=== PATIENT | male | born 2000 | race Caucasian/White ===

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

== ENCOUNTER → 2020-06-24 11:46 | Outpatient (BNVA) | payer SELFPAY | PROVIDERS: Family Provider Nurse Practitioner; Visit Provider Nurse Practitioner Family | DX: S46.911A Strain of unspecified muscle, fascia and tendon at shoulder and upper arm level, right arm, initial encounter (principal); S39.012A Strain of muscle, fascia and tendon of lower back, initial encounter; J30.2 Other seasonal allergic rhinitis; X58.XXXA Exposure to other specified factors, initial encounter | CPT/HCPCS: 73030 ==

== ENCOUNTER 2024-11-05 20:01 | Emergency (ER) | payer BC, SELFPAY ==
[2024-11-05 20:17] VITALS: BP 142/75; PULSE 88; RESP 17; TEMP 37; O2SAT 97; BMI 30.1
--- OUTSIDE RECORDS SUMMARY | 2024-11-05 20:19 | XMS_ITS | Clinical Summary ---
Author Organization [facility] Address [address] [facility] Attn: Epic Prelude ADT ROBYN SOTO [id number] Care Team Providers Care Powder Hand Name Role Phone Unavailable Primary Care Provider Unavailabl e Allergies No known active allergies Medications bismuth subsalicylate (PEPTO-BISMOL) 262 mg Tablet, Chewable Take 262 mg by mouth every 1 hour as needed. 9 Active ibuprofen (MOTRIN) 800 mg tablet Take 800 mg by mouth every 6 hours as needed for Pain, Mild. 9 Active dicyclomine (BENTYL) 10 mg capsule Take 1 Capsule (10 mg) by mouth 4 times daily. 30 Capsule None 9 Active ondansetron (ZOFRAN ODT) 4 mg Tablet, Rapid Dissolve Take 1 Tablet (4 mg) by mouth every 8 hours as needed for Nausea/Emesis Dissolve tablet on top of tongue, then swallow with saliva.. 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 Gender Identity Not on file Sexual Orientation Not on file Last Filed Vital Signs Vital Sign Reading Time Taken Comments Blood Pressure 135/71 09/12/2018 6:02 PM CDT Pulse 92 05/17/2018 5:24 PM CDT Temperature 36.8 C (98.3 F) 09/12/2018 6:02 PM CDT Respiratory Rate 16 09/12/2018 6:02 PM CDT Oxygen Saturation - - Inhaled Oxygen Concentration - - Weight 73.6 kg (162 lb 3.2 oz) 09/12/2018 4:13 P M CDT Height 177.8 cm (5' 10 ) 09/12/2018 4:13 PM CDT Body Mass Index 23.27 09/12/2018 4:13 PM CDT Plan of Treatment Health Maintenance Due Date Last Done Comments HPV VACCINES (1 - Male 3-dose series) 08/03/2015 DTAP/TDAP/TD VACCINES (1 - Tdap) 08/03/2019 HEPATITIS B VACCINES (1 of 3 - 19+ 3-dose series) 07/14 INFLUENZA VACCINE (#1) 2024 CHLAMYDIA SCREENING (ANNUAL) 11-24 YEARS Discontinued 09/12/2018 Procedures Procedure Name Priority Date/Time Associated Diagnosis Comments GC/CHLAMYDIA, URINE Routine 09/12/2018 5 :25 PM CDT from Last 3 Months or Most Recently Relevant to Health Maintenance Results * GC/CHLAMYDIA, URINE (09/12/2018 5:25 PM CDT) CHLAMYDIA DNA AMPLIFICATION NOT DETECTED Not Detected 09/13/2018 9:45 PM CDT [facility] GC DNA AMPLIFICATION NOT DETECTED Not Detected 09/13/2018 9:45 PM CDT [facility] Urine URINE SPECIMEN / Unknown Collection / Unknown 09/12/2018 5:25 PM CDT 09/13/2018 8:12 PM CDT Narrative [facility] - 09/13/2018 9:45 PM CDT Results should not be used for the evaluation of suspected sexual abuse or for other medico-legal indications. The only legally accepted results are from culture. Results cannot be used to assess therapeutic success or failure since nucleic acids may persist following antimicrobial therapy. us Lisa Darden MD URINE ORDERABLES COM F inal Result [facility] CLIA# [id number] [address] [place] [address] [id number] [address] [place] [address] from Last 3 Months or Most Recently Relevant to Health Maintenance
--- OUTSIDE RECORDS SUMMARY | 2024-11-05 20:19 | XMS_ITS | Clinical Summary ---
Author Organization [facility] Address [address] [place] [address] Care Team Providers Care Hooker Off Name Role Phone Unavailable Primary Care Provider Unavailabl e Allergies No known active allergies Medications bismuth subsalicylate (PEPTO-BISMOL) 262 mg Tablet, Chewable Take 262 mg by mouth every 1 hour as needed. Active ibuprofen (MOTRIN) 800 mg tablet Take 800 mg by mouth every 6 hours as needed for Pain, Mild. Active dicyclomine (BENTYL) 10 mg capsule Take 1 Capsule (10 mg) by mouth 4 times daily. 30 Capsule None 9 Active ondansetron (ZOFRAN ODT) 4 mg Tablet, Rapid Dissolve Take 1 Tablet (4 mg) by mouth every 8 hours as needed for Nausea/Emesis Dissolve tablet on top of tongue, then swallow with saliva.. 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 Gender Identity Not on file Sexual Orientation Not on file Last Filed Vital Signs Vital Sign Reading Time Taken Comments Blood Pressure 135/71 09/12/2018 6:02 PM CDT Pulse 92 05/17/2018 5:24 PM CDT Temperature 36.8 C (98.3 F) 09/12/2018 6:02 PM CDT Respiratory Rate 16 09/12/2018 6:02 PM CDT Oxygen Saturation 100% 09/12/2018 6:02 PM CDT Inhaled Oxygen Concentration - - Weight 73.6 [...] Priority Date/Time Associated Diagnosis Comments GC/CHLAMYDIA, URINE Stat 09/12/2018 5 :25 PM CDT from Last 3 Months or Most Recently Relevant to Health Maintenance Results * GC/CHLAMYDIA, URINE (09/12/2018 5:25 PM CDT) CHLAMYDIA DNA AMPLIFICATION NOT DETECTED Not Detected 09/13/2018 9:45 PM CDT [facility] GC DNA AMPLIFICATION NOT DETECTED Not Detected 09/13/2018 9:45 PM CDT [facility] Urine URINE SPECIMEN / Unknown Collection / Unknown 09/12/2018 5:25 PM CDT 09/12/2018 5:31 PM CDT Narrative [facility] - 09/13/2018 9:45 PM CDT Results should not be used for the evaluation of suspected sexual abuse or for other medico-legal indications. The only legally accepted results are from culture. Results cannot be used to assess therapeutic success or failure since nucleic acids may persist following antimicrobial therapy. us Lisa Darden MD URINE ORDERABLES COM F inal Result [facility] CLIA# [id number] [address] [place] [address] from Last 3 Months or Most Recently Relevant to Health Maintenance
[2024-11-05 20:20] VITALS: BP 142/75; O2SAT 99
--- NOTE | 2024-11-05 20:21 | ECG_ITS ---
[facility]: 2024-11[facility]05 Pat Name: Jairo Aggarwal Department: Room: Gender: Male Setup Technician: : 2000 Requested By: Hi Falcon Order Number: [id number] Roth MD: Matt Jerome M.D. Measurements Intervals [place] Rate: 69 P: 66 GA: 155 QRS: 49 QRSD: 93 T: 60 QT: 313 QTc: 336 Interpretive Statements SINUS RHYTHM WITH SINUS ARRHYTHMIA NONSPECIFIC ST & T-WAVE ABNORMALITY No previous ECG available for comparison Electronically Signed On 11-05-2024 22:41:20 CDT by Matt Jerome M.D. [email or web address]
--- NOTE | 2024-11-05 20:22 | ED_ITS ---
HPI - Back Pain/Injury General: Chief Complaint: Back Pain/Injury Stated Complaint: Lower back pain sharp, having trouble walking Time Seen by Provider: 11/05/24 20:03 Source: patient Mode of arrival: ambulatory Limitations: no limitations History of Present Illness: Patient is a 24-year-old male with no pertinent past medical history who reports Emergency Department complaint of sudden onset right lower back pain rating down the right lower extremity that began at 1800 tonight. States that he was working on his vehicle, he bent over to pick something up when he had the sudden sharp pain to the right paralumbar muscles, which caused him to fall to his knees. Reportedly had a syncopal episode secondary to trying to stand up due to the pain. Notes that he has similar presentation in the past where he was diagnosed with lumbar strain, this feels similar but much more severe. No medications have been taken prehospital. No bowel or bladder incontinence or saddle anesthesia. No direct trauma is reported. No fever, history of cancer, history of steroid use, history of IV drug use, or any other pertinent historical elements at this time. With a syncopal episode did not hit his head or lose consciousness. His vitals are stable at this time, nontoxic-appearing overall. States that the pain has been so severe that he has been having difficulty walking. MD elicited complaint: back pain Pertinent past history: prior back pain Onset (ago): hour(s) Timing: constant Severity: severe Similar Symptoms Previously: Yes Location: right lower back Radiation: right upper leg Exacerbating factors: movement and walking Relieving factors: immobilization Context: bending Associated symptoms: Reports syncope; Deny abdominal pain, difficulty walking, fecal incontinence or fever(s) Related Data Previous Rx's ?Medication ?Instructions ?Recorded cetirizine 10 mg tablet (Zyrtec) 10 mg PO DAILY 30 day s #30 tabs 06/24/20 ibuprofen 800 mg tablet See Rx Instructions PO .COMP SAVAGE 06/24/20 #60 tabs methylprednisolone 4 mg tablets in See Rx Instructions PO PER PKG DIR 06/24/20 a dose pack (Medrol (Giovanni)) #21 ea hydrocodone 7.5 mg-acetaminophen 1 tab PO Q8H PRN pain #15 tabs 11/05/24 325 mg tablet methocarbamol 750 mg tablet 750 mg PO Q8H 5 days #15 t abs 11/05/24 prednisone 20 mg tablet 60 mg (3 x 20 mg) PO ONCE 5 days 11/05/24 #15 tabs Allergies Allergy/AdvReac Type Severity Reaction Status Date / Time No Known Allergies Allergy Verified 11/05/24 20:19 Review of Systems General: Reports: 10 or more systems reviewed and unremarkable except in HPI and below Const: Reports: other (denies trauma); Denies: fever(s), change in weight or night sweats Card: Reports: syncope; Denies: chest pain or lightheadedness Resp: Denies: dyspnea GI: Denies: abdominal pain or fecal incontinence : Denies: urinary incontinence Musc: Reports: back pain and extremity pain (RLE); Denies: neck pain Skin/Breast: Denies: rash or skin pain Neuro: Denies: headache(s), numbness in extremities, weakness in extremities, sensory changes, lack of coordination, difficulty walking, frequent falls or involuntary movements PFS ED PFSH: Medical History Strain of lumbar spine Right shoulder strain Social History Smoking and tobacco/nicotine status: former use of tobacco/nicotine Quit status (tobacco/nicotine): has quit using Year quit tobacco: 2019 Second hand smoke exposure: Yes Current gender identity: Male Physical Exam Const: COMMON NORMALS: no acute distress, patient oriented x3, no limitations, healthy appearing and alert Resp: COMMON NORMALS: normal respiratory effort, No retractions, No use of accessory muscles and clear to auscultation bilaterally AUSCULTATION: clear to auscultation bilaterally Cardio: COMMON NORMALS: regular rate, regular rhythm, S1 normal heart sound present and S2 normal heart sound present RATE: regular rate RHYTHM: regular rhythm HEART SOUNDS: S1 normal heart sound present and S2 normal heart sound present Back/Pelvis: OTHER: Straight leg raise positive on the right with minimal elevation at the hip. Negative straight leg raise testing on the left. Normal visual examination. No spinous process tenderness or paracervical, parathoracic, or paralumbar tenderness to palpation. Pain with range of motion at the low back. Extremity: COMMON NORMALS: normal to inspection and full ROM Neuro: COMMON NORMALS: patient oriented x3, moves all extremities, no focal motor deficits, no sensory deficits noted, deep tendon reflexes 2+ bilaterally and gait normal SENSORIUM/ORIENTATION: Yes alert OTHER: L3, L4, L5, and S1 nerve sensations intact. Normal knee jerk and ankle jerk reflexes. Skin: COMMON NORMALS: no rashes or lesions noted GENERAL SKIN EXAM: no rashes or lesions noted Course Vital Signs: Vital signs: Vital Signs Temperature 98.6 F 11/05/24 20:17 Pulse Rate 66 11/05/24 22:39 Respiratory Rate 16 11/05/24 22:39 Blood Pressure 102/58 11/05/24 22:39 Pulse Oximetry 95 11/05/24 22:39 Oxygen Delivery Me thod Room Air 11/05/24 21:38 MDM - Back Pain/Injury Medical Decision Making Patient has been into the emergency department with sudden onset severe right lower back pain radiating to the right leg, history of similar diagnosed a strain in the past. No trauma reported, states this occurred while bending over and working on his car. No neurological symptoms were reported and neurologically intact on physical exam, no symptoms of cauda equina. Initially treated with medications, however this minimally helped so CT ordered which showed bulging disks. He will be referred to Ortho/spine for further chronic management of this and medications will be sent to pharmacy for at home treatment. He is stable for discharge home as he is able to ambulate following administration of Dieterich, and strict return precautions were given to which he verbalizes understanding. Labs Radiology Impressions Lumbar Spine CT 11/05/24 21:03 IMPRESSION: 1. Posterior disc bulges at L4-L5 and L5-S1 with mild spinal canal stenosis. Question of mild neural foraminal stenosis at these levels. MRI lumbar spine without contrast can be obtained for further characterization if clinically indicated. 2. No acute fracture or compression deformity. 3. Incidental note of a horseshoe kidney. 4. No subluxations. All radiology interpretation(s) finalized by discharge Discharge Plan Discharge Patient Disposition: Home Clinical Impression: Bulging lumbar disc Condition: Stable Prescriptions: New prednisone 20 mg tablet 60 mg PO ONCE 5 Days Qty: 15 0RF hydrocodone-acetaminophen 7.5-325 mg tablet 1 tab PO Q8H PRN (Reason: pain) Qty: 15 0RF methocarbamol 750 mg tablet 750 mg PO Q8H 5 Days Qty: 15 0RF No Action methylprednisolone [Medrol (Giovnani)] 4 mg tablets,dose pack See Rx Instructions PO PER PKG DIR Qty: 21 0RF Rx Instructions: PO PER PKG DIR ibuprofen 800 mg tablet See Rx Instructions PO .COMPLEX Qty: 60 0RF Rx Instructions: 1 tab every 8hrs while taking Medrol Giovanni, then 1 q8hrs PRN PO; cetirizine [Zyrtec] 10 mg tablet 10 mg PO DAILY 30 Days Qty: 30 5RF Discharge Orders: Discharge ED (Routine); Ordered 11/05/24 Ordered By: Hi Barrios Referrals: JEANETTE Tony FNP [Primary Care Provider, Family Practice] Kaylee Menezes FNP [Family Provider, Nurse Practitioner] Patient Instructions: Opioid Safety, Pain Management, Patient Portal & Terrance Instructions Activity Restrictions/Additional Instructions: Bulging Disk Discharge Instructions Diagnosis: 24-year-old male with bulging lumbar intervertebral disks confirmed by CT. No major neurologic deficits. Referred to orthopedic surgery/presentation specialist. Medications: - Hydrocodone?acetaminophen 7.5-325 mg tablets: For severe pain, use as prescribed and only for short-term relief. Opioids should be time-limited due to risk of dependence and adverse effects; discontinue as soon as pain is manageable with non-opioid analgesics. - Methocarbamol (Robaxin): Use as directed for muscle spasm. Evidence for muscle relaxants in radicular pain is limited; discontinue if ineffective. - Prednisone 60 mg once daily for 5 days: Short course for acute radiculopathy. Oral steroids may provide modest functional improvement but do not reliably reduce pain; monitor for transient side effects (insomnia, increased appetite, mood changes). Activity and Self-Management: - Encourage regular activity: Avoid bed rest; maintain walking and daily activities as tolerated. Prolonged inactivity may worsen outcomes. - Physical therapy/exercise: Begin gentle stretching and aerobic exercise as tolerated. Directional preference exercises (e.g., Duncan method) may help centralize pain. - Heat therapy: Consider use of heating pad for symptomatic relief. - Education: Reassure regarding favorable prognosis; most patients improve within 6 weeks of conservative management. Avoid alarming terminology; use bulging or protruded disk rather than ruptured . Follow-Up and Red Flags: - Monitor for neurologic symptoms: Advise immediate medical attention for new/worsening leg weakness, numbness, loss of bowel/bladder control, or saddle anesthesia (possible cauda equina syndrome). - Routine follow-up: If pain persists beyond 6 weeks, or if symptoms worsen, further evaluation (MRI) and consideration of interventions (e.g., epidural steroid injection, surgery) may be warranted. - Referral: Orthopedic/presentation specialist referral is appropriate for persistent or severe symptoms, or if surgical intervention is considered. Medication Safety: - Opioids: Use only as needed for severe pain; avoid long-term use due to risk of dependence, overdose, and other adverse effects. - Steroids: Short course is generally safe; monitor for side effects. No evidence for long-term benefit. - Muscle relaxants: Discontinue if no benefit or if adverse effects occur. Additional Recommendations: - NSAIDs: May be considered for additional pain relief if not contraindicated. - Psychosocial factors: Address fear avoidance and encourage return to normal activities; consider cognitive behavioral therapy if chronic pain develops. Summary: Conservative management is first-line for bulging lumbar disks without major neurologic deficits. Most patients improve within 6 weeks. Medications should be used judiciously and discontinued if ineffective. Activity and exercise are encouraged. Follow up for persistent or worsening symptoms, and refer to specialist as indicated. Print Language: Nigerien Coding Level of Care Code ED Trailer Tank Truck Driver for Danii Lazo
[2024-11-05] MEDS: orphenadrine 30 mg/mL Inj 2 mL 60 MG IM (20:26)
--- NOTE | 2024-11-05 21:03 | CTR_ITS ---
PROCEDURE INFORMATION: Exam: CT Lumbar Spine Without Contrast Exam date and time: 11/05/2024 9:14 PM Age: 24 years old Clinical indication: Low back pain; Additional info: Severe low back pain, cant walk TECHNIQUE: Imaging protocol: Computed tomography of the lumbar spine without contrast. Radiation optimization: All CT scans at this facility use at least one of these dose optimization techniques: automated exposure control; mA and/or kV adjustment per patient size (includes targeted exams where dose is matched to clinical indication); or iterative reconstruction. COMPARISON: No relevant prior studies available. RADIATION DOSE METRICS: Total DLP (mGy-cm): 780.56 FINDINGS: Bones/joints: A left sacral ala bone island is present. Mild posterior circumferential disc bulge at L4-L5 and L5-S1 with mild spinal canal stenosis. Question mild neural foraminal stenosis of the levels. No acute fracture or compression deformity is noted. No subluxations. Intervertebral disc spaces are maintained. Kidneys and ureters: A horseshoe kidney is present. Soft tissues: Unremarkable. CT/CT lumbar spine wo con* [id number] IMPRESSION: 1. Posterior disc bulges at L4-L5 and L5-S1 with mild spinal canal stenosis. Question of mild neural foraminal stenosis at these levels. MRI lumbar spine without contrast can be obtained for further characterization if clinically indicated. 2. No acute fracture or compression deformity. 3. Incidental note of a horseshoe kidney. 4. No subluxations.
[2024-11-05] MEDS: HYDROcodone-acetaminophen 7.5-325 mg Tablet 1 TAB PO (21:09)
[2024-11-05 21:11] VITALS: BP 124/65; O2SAT 97
[2024-11-05 21:38] VITALS: BP 131/66; O2SAT 93
[2024-11-05 22:39] VITALS: BP 102/58; PULSE 66; RESP 16; O2SAT 95
--- NOTE | 2024-11-07 04:37 | DCPLANNER ---
Message sent to Ortho
== END 2024-11-05 22:42 | disposition home or self-care (01) ==
PROVIDERS: Emergency Provider Physician Assistant; Family Provider Nurse Practitioner; PCP Nurse Practitioner Family
DX: M51.369 Other intervertebral disc degeneration, lumbar region without mention of lumbar back pain or lower extremity pain (principal); Z87.891 Personal history of nicotine dependence
CPT/HCPCS: 72131; 93005; 96372; 99284; J1885; J2360; J9999